=== PATIENT | male | born 1970 | race Caucasian/White ===

== ENCOUNTER 2024-10-09 19:16 | Emergency (ER) | payer OTHER, SELFPAY ==
[2024-10-09 19:25] VITALS: BP 127/79; PULSE 97; RESP 16; TEMP 36.1; O2SAT 98
--- NOTE | 2024-10-09 19:44 | ED_ITS ---
HPI - URI/Sore Throat General Chief Complaint: Nausea/Vomiting/Diarrhea Stated Complaint: cold /flu like symptoms Time Seen by Provider: 10/09/24 19:45 Source: patient, RN notes reviewed and old records reviewed Mode of arrival: ambulatory Limitations: no limitations History of Present Illness HPI Narrative: 54-year-old male presents to the [facility] with an upset stomach since Sunday, Sunday developed nausea vomiting diarrhea. Had an episode of diarrhea today. Did take Pepto which has helped symptoms. Able to tolerate fluids currently. Patient denies any upper respiratory symptoms. Denies abdominal pain and chest pain Onset (ago): day(s) (3) Related Data Home Medications ?Medication ?Instructions ?Recorded ?Confirmed ?Last Taken ?Type albuterol sulfate 90 mcg/actuation inhalation 10/09/24 Unknown History aerosol inhaler aspirin 81 mg tablet,delayed mg 10/09/24 Unknown History release atorvastatin 20 mg tablet mg 10/09/24 Unknown History carvedilol 3.125 mg tablet mg 10/09/24 Unknown History clopidogrel 75 mg tablet mg 10/09/24 Unknown History cyclobenzaprine 10 mg tablet mg 10/09/24 Unknown History losartan 25 mg tablet mg 10/09/24 Unknown History montelukast 10 mg tablet mg 10/09/24 Unknown History omeprazole 20 mg capsule,delayed mg 10/09/24 Unknown History release sertraline 100 mg tablet mg 10/09/24 Unknown History Allergies Allergy/AdvReac Type Severity Reaction Status Date / Time No Known Allergies Allergy Verified 10/09/24 19:34 Review of Systems Review of Systems: All systems reviewed & are unremarkable except as noted in HPI and below Constitutional: Constitutional: Reports no additional constitutional complaints ENT: Reports system reviewed and no additional complaints, except as documented Cardiovascular: Cardiovascular: Reports no additional cardiovascular complaints, Denies chest pain and Denies dyspnea Respiratory: Respiratory: Reports no additional respiratory complaints, Denies chest congestion, Denies cough and Denies dyspnea Gastrointestinal: Gastrointestinal: Reports as per HPI, Denies abdominal pain, Reports diarrhea, Reports nausea and Reports vomiting Musculoskeletal: Musculoskeletal: Reports no additional musculoskeletal complaints Integumentary/Breasts: Skin/Breast: Reports system reviewed and no additional complaints, except as docu [facility] Past Medical History Medical History (Updated 10/10/24 @ 08:06 by Lianet A. Topper, SERVICE ASSISTANT) History of high blood pressure Comments At the time of my signature, I reviewed and agree with the nursing past medical, surgical, social, and family history. There is no relevant family history pertinent to the patient complaint. Exam Const: General: cooperative, healthy appearing, comfortable, no acute distress, well developed, alert and well nourished Nutritional Appearance: well nourished Orientation/consciousness: patient oriented x3 Limitations: no limitations HENMT: Head: normal to inspection Ears: hearing grossly normal bilaterally and external ears normal Mouth: Yes Normal oral and palatal mucosa present, Yes lip normal, Yes tongue normal and Yes moist mucous membranes Throat: posterior oropharynx normal, uvula midline and no uvular edema Eyes: General: appearance normal, both eyes and all related structures Alignment and Position: alignment normal Neck: Neck: normal visual inspection, full ROM, no lymphadenopathy and no meningeal signs Chest: Chest palpation & inspection: normal inspection of the chest Resp: Effort & Inspection: normal respiratory effort and able to speak in complete sentences Auscultation: clear to auscultation bilaterally, no crackles, no rales, no rhonchi and no wheezes Cardio: Rate: regular rate GI: GI Palp: No abdominal tenderness Auscultation: normal bowel sounds Skin: General skin exam: normal color and no rashes or lesions noted Neuro: General: patient oriented x3, gait normal, moves all extremities and no meningeal signs Cognition (Neuro): normal cognition Speech: normal speech Gait exam (Neuro): Normal gait present Extrem: General: normal to inspection, full ROM, capillary refill normal and normal gait Psych: Appearance: grossly normal and well kempt Mental Status: mental status grossly normal Speech and movement: Normal speech and movement present and Clear speech present Affect: normal affect Attitude: cooperative Course Course Level of Care: Express Care Visit Vital Signs Vital signs: Vital Signs Temperature 97.0 F L 10/09/24 19:25 Pulse Rate 97 10/09/24 19:25 Respiratory Rate 10/09/24 19:25 Blood Pressure 127/79 10/09/24 19:25 Pulse Oximetry 98 10/09/24 19:25 Oxygen Delivery Room Air 10/09/24 19:25 Temperature 97.0 F L 10/09/24 19:25 Pulse Rate 97 10/09/24 19:25 Respiratory Rate 16 10/09/24 19:25 Blood Pressure 127/79 10/09/24 19:25 Pulse Oximetry 98 10/09/24 19:25 Oxygen Delivery Room Air 10/09/24 19:25 Reviewed MDM - URI/Sore Throat MDM Narrative Medical decision making narrative: Patient sitting comfortably in exam room. Nontoxic vitals stable. Patient in no acute distress. Patient presents 3 day history GI symptoms. No acute findings noted on exam. Patient appropriate for outpatient treatment and follow-up Discharge instructions reviewed with patient, as well as provided in writing per nursing staff. The instructions also include specific and strict return/GO TO THE ER as well as f/u information. All questions have been answered, and the patient deny any further questions with discharge and discharge plan. Some parts of this dictation were generated by voice recognition software and may contain typographical and/or grammatical inaccuracies. Differential Diagnosis Differential diagnosis: Likely viral infection and other (Gastroenteritis) Critical Care Time Critical Care Time Critical Care Time: No Discharge Plan Discharge Clinical Impression: Gastroenteritis Patient Disposition: Home, Self-Care Condition: Stable Instructions: Antibiotic Form, Gastroenteritis (DC), Acute Nausea and Vomiting (ED) Additional Instructions: Keep your diet very simple. Nothing fried, greasy, spicy or highly processed for at least 5 days. Stay hydrated with plenty of water, Gatorade, Pedialyte. If you are unable to keep fluids down please proceed to the nearest emergency room for further evaluation, testing or treatment Take antinausea medication only as prescribed If you develop fevers, abdominal pain please go directly to the emergency room Always follow-up with your primary care provider Patient Language: Bengali Prescriptions: New promethazine 25 mg tablet 25 mg PO TID PRN (Reason: nausea and vomiting) Qty: 6 0RF No Action cyclobenzaprine 10 mg tablet atorvastatin 20 mg tablet sertraline 100 mg tablet clopidogrel 75 mg tablet aspirin 81 mg tablet,delayed release (DR/EC) carvedilol 3.125 mg tablet losartan 25 mg tablet omeprazole 20 mg capsule,delayed release(DR/EC) montelukast 10 mg tablet albuterol sulfate 90 mcg/actuation HFA aerosol inhaler INHALATION Follow-up/Referrals: UNKNOWN,DOCTOR [Primary Care Provider] - Stand Alone Forms: Work/School Release IP Time of Disposition: 19:52
== END 2024-10-09 20:00 | disposition home or self-care (01) ==
PROVIDERS: Emergency Provider Nurse Practitioner
DX: K52.9 Noninfective gastroenteritis and colitis, unspecified (principal); Z79.899 Other long term (current) drug therapy
CPT/HCPCS: 99213; G0463